=== PATIENT | male | born 1995 | race Caucasian/White ===

== ENCOUNTER 2019-03-31 21:36 | Emergency (ER) | payer OTHER ==
[2019-03-31 21:53] VITALS: BP 140/93
--- NOTE | 2019-03-31 22:05 | UC ---
General HPI - HPI Summary HPI Summary: 23-year-old male comes in with a chief complaint of feeling like there is a pill stuck in his posterior pharynx. Patient took a Benadryl pill earlier today and he felt like it got stuck in the back of his throat. Sensation was fairly mild initially. As the days gone on he's been having more discomfort with swallowing and feeling like there is a foreign body in his upper posterior pharynx. He is able to eat and drink. He has been gargling attempted to get it to move and he has not had any success. No shortness of breath. - History of Current Complaint Chief Complaint: UCGeneralIllness Stated Complaint: PILL CAUGHT IN THROAT Time Seen by Provider: 03/31/19 21:38 Pain Intensity: 0 - Allergy/Home Medications Allergies/Adverse Reactions: Allergies Allergy/AdvReac Type Severity Reaction Status Date / Time No Known Allergies Allergy Verified 03/31/19 21:55 Home Medications: Home Medications Pseudoephedrine TAB* [Sudafed TAB*] 30 mg PO Q6H PRN 03/31/19 [History Confirmed 03/31/19] PMH/Surg Hx/FS Hx/Imm Hx Previously Healthy: Yes - Surgical History Surgical History: None - Family History Known Family History: Positive: Non-Contributory - Social History Alcohol Use: Occasionally Substance Use Type: None Smoking Status (MU): Never Smoked Tobacco Review of Systems All Other Systems Reviewed And Are Negative: Yes Constitutional: Positive: Negative Skin: Positive: Negative Eyes: Positive: Negative ENT: Positive: Sore Throat Respiratory: Positive: Negative Cardiovascular: Positive: Negative Gastrointestinal: Positive: Negative Motor: Positive: Negative Neurovascular: Positive: Negative Musculoskeletal: Positive: Negative Neurological: Positive: Negative Psychological: Positive: Negative Is Patient Immunocompromised?: No Physical Exam Triage Information Reviewed: Yes Appearance: Well-Appearing, No Pain Distress, Well-Nourished Vital Signs: Initial Vital Signs Temp 98.9 F 03/31/19 21:46 Pulse 89 03/31/19 21:46 Resp 16 03/31/19 21:46 BP 140/93 03/31/19 21:46 Pulse Ox 99 03/31/19 21:46 Vital Signs Reviewed: Yes Eye Exam: Normal Eyes: Positive: Conjunctiva Clear ENT: Positive: Pharynx normal, TMs normal, Uvula midline, Other - I do not see any foreign body or irregularity on examination the posterior pharynx.. Negative: Muffled voice, Hoarse voice Neck: Positive: Supple Respiratory: Positive: Lungs clear, Normal breath sounds, No respiratory distress. Negative: Stridor Cardiovascular: Positive: RRR Musculoskeletal: Positive: Strength Intact, ROM Intact Neurological: Positive: Alert, Muscle Tone Normal Psychological: Positive: Age Appropriate Behavior Skin Exam: Normal Course/Dx - Course Course Of Treatment: No foreign body seen on my exam. By the patient's description it's upper posterior pharynx perhaps going in to the sinus. We discussed there is possibilities to include whether or not could've had the mucosa scratched and have the sensation of foreign body within there is not a foreign body there. Also Benadryl as not a known caustic substance. He does not believe that it would've had any ibuprofen or aspirin in it which could be caustic. We also discussed saline nasal spray as a possible way to loosen the pill if it is there. The plan is to follow-up with ENT tomorrow if is still bothering him. Also the patient know if there is any worsening of his condition with difficulty swallowing or breathing she go directly to the emergency department. - Diagnoses Provider Diagnosis: Foreign body in throat Discharge ED - Sign-Out/Discharge Documenting (check all that apply): Patient Departure All imaging exams completed and their final reports reviewed: No Studies - Discharge Plan Condition: Stable Disposition: HOME Patient Education Materials: Foreign Body in Pharynx (ED) Referrals: Alan Roberson MD [Medical Doctor] - Additional Instructions: FOLLOW UP WITH ENT IF NOT COMPLETELY IMPROVED. GO TO THE EMERGENCY DEPARTMENT IF YOUR CONDITION WORSENS; PAIN, DIFFICULTY WITH SWALLOWING OR BREATHING OR ANY QUESTIONS OR CONCERNS. - Billing Disposition and Condition Condition: STABLE Disposition: Home
== END 2019-03-31 22:14 | disposition home or self-care (01) ==
LOC: UCEAST 21:36
DX: T17.298A Other foreign object in pharynx causing other injury, initial encounter (principal); X58.XXXA Exposure to other specified factors, initial encounter; Y92.9 Unspecified place or not applicable
CPT/HCPCS: 99201; G0463